=== PATIENT | male | born 1970 | race Caucasian/White ===

== ENCOUNTER 2016-12-07 19:11 | Emergency (ER) | payer OTHER ==
[~2016-12-07] VITALS: Ht 180.3 cm; Wt 76.0 kg
[~2016-12-07 19:11] MED LIST: CEPH500C3 PO; FIORTAB4 PO; MUPI2%T TOP; OMEP20TA39 PO; VENL75 PO; ZYRT10TA12 PO
[2016-12-07 19:16] VITALS: BP 132/92; PULSE 71; RESP 16; TEMP 99.4; O2SAT 99
--- NOTE | 2016-12-08 21:08 | EKG ---
Date Performed: 12/07/2016 Time Performed: 19:22:28 PTAGE: 46 years EKG: Sinus rhythm . Normal ECG PREVIOUS TRACING : 06/14/2016 20.37 DOCTOR: Kimani Hendricks Interpretating Date/Time 12/08/2016 21:03:47
== END 2016-12-07 21:57 | disposition left against medical advice (07) ==
LOC: PHED 19:11
DX: R51 Headache (principal)
CPT/HCPCS: 93005; 99281